=== PATIENT | male | born 1995 | race Caucasian/White ===

== ENCOUNTER 2016-11-04 06:06 | Day surgery (SDC) | payer OTHER ==
[2016-11-04] VITALS (7 sets, daily range): BP systolic 113–133; BP diastolic 73–86
[~2016-11-04] VITALS: Ht 165.1 cm; Wt 56.2 kg
--- NOTE | ~2016-11-04 | O ---
[facility] [place] [address] OPERATIVE REPORT Name: YAKELIN TEE Room #: DEP [facility] M..#: [id number] Admission: 11/04/16 Attend Phys: Sanchez Arango MD Discharge: 11/04/16 Date of : 89 Report #: [id number] THIS REPORT FOR: //name// CC: Gabby Smalls MD DATE OF SERVICE: 11/04/2016 PREOPERATIVE DIAGNOSIS: Status post acute ruptured appendicitis, now here for appendectomy. POSTOPERATIVE DIAGNOSIS: Status post acute ruptured appendicitis, now here for appendectomy. Appendix was retrocecal. PROCEDURES PERFORMED: Laparoscopic appendectomy. SURGEON: Sanchez Arango M.D. ANESTHESIA: General anesthesia. COMPLICATIONS: None. ESTIMATED BLOOD LOSS: 10 mL. DESCRIPTION OF PROCEDURE NOTE: The patient under general anesthesia, IV antibiotic Ancef and Flagyl was given. The abdomen was prepped and draped in sterile fashion. Timeout was performed. A 2 cm incision was made infraumbilically. Fascia was identified, grasped with hemostat. Fascia was then opened under visualization between the hemostat. A 0 Vicryl suture placed on the fascia for retraction. Veress needle was then placed through peritoneum. Abdominal cavity was insufflated with CO2. After creating pneumoperitoneum pressure of 15, a 12 mm trocar was placed under visualization through the fascial defect. The underlying tissue was not harmed during the port placement. A 5 mm trocar was placed about 3 inches above the umbilicus and then the second 5 mm trocar was placed about 2 inches below the umbilicus in the midline. The patient was placed with the right side up in the Trendelenburg position. The cecum is very floppy going down to the pelvis. The appendix incurred back up from the cecum in the retrocecal position lateral to the mesocolon. Some of the peritoneal reflection was freed and some adhesions were freed. The base of the appendix and the proximal appendix were normal in appearance. Dissection was carried out distally and then, the appendix was noted to be more swollen and adherent to the overlying cecum. Once I was able to separate these two and there is little mucusy material consistent where the rupture site was. This was about a couple of drops only. The tip of the appendix still goes about [address] to [address] [address] OPERATIVE REPORT Name: BEBOJAQUELINYAKELIN Room #: DEP [facility] M.R.#: [id number] Admission: 11/04/16 Attend Phys: Sanchez Arango MD Discharge: 11/04/16 Date of : 89 Report #: [id number] cm beyond the site. The tip of the appendix was isolated. The mesoappendix was divided. The appendix and also the mesoappendix were also divided at the base and isolating the appendix at the base. The 10 mm scope was switched to a 5 mm scope placed to the inferior trocar. Endo-JULIUS with the white staple was placed across the appendix and then, this was fired. The appendix was divided away from the cecum. identified. No bleeding was identified. There were some loose margot that were retrieved. Hemostasis obtained. The cecum was then allowed to go back into the pelvis. The trocars were then removed. CO2 was evacuated as much as possible. The fascia defect of the umbilicus was closed with [id number] 0 Vicryl times 2. Skin was irrigated, closed with 5-0 PDS. Steri-Strip and Band-Aids applied. The patient tolerated the procedure well and was taken to recovery room. By: [id number] Sanchez Arango MD /nt
--- NOTE | ~2016-11-04 | H ---
[facility] [place] [address] HISTORY AND PHYSICAL Name: YAKELIN TEE Room #: 150-7 [facility] M.R.#: [id number] Admission: 11/04/16 Attend Phys: Sanchez Arango MD Discharge: Date of : 89 Report #: [id number] THIS REPORT FOR: //name// CC: Gabby Arango PREOPERATIVE DIAGNOSIS: Recent acute appendicitis, here for appendectomy. HISTORY OF PRESENT ILLNESS: The patient is a 20-year-old who was seen originally the end of the 09/30/2016 with episode of abdominal pain. The patient's pain started about 4 days before presentation. He came to see me and a CAT scan was performed that showed he had evidence of appendicitis, but it looked like it could walled off posterior to the cecum. He was having pain on Thursday and then Thursday was localized to right lower quadrant. On Thursday, the pain got had moved back up again. No nausea, no vomiting. He was able to work through the pain episode. He did have some fevers and chills. He was admitted for treatment and patient initially thought this was gas build up or pulled muscle. The patient was put in the hospital on Thursday. At the same time, the patient developed shingles. Because of the process of being walled off I recommended antibiotic treatment. He was in the hospital for about 48 hours, 72 hours, treated with IV antibiotics, which he did do well with. His followup CT showed a diminishing inflammation there was a question whether he developed an abscess but that look like it was not going to happen. The patient was sent home on continued on oral antibiotics. He did improve following a course of antibiotics, he did follow couple of times in the office, continued to do well and the mass were inflammatory process in the right lower quadrant was improving on clinical exam. The patient is now brought in for laparoscopic appendectomy. PAST MEDICAL HISTORY: No heart disease, no diabetes. No high blood pressure. No lung disease. No liver or kidney disease. No bleeding disorder. No history of blood clot. Recent shingles. MEDICATIONS: None. ALLERGIES: None. FAMILY HISTORY: Also unremarkable. SOCIAL HISTORY: The patient works in the [employer]. Does not smoke or drink. REVIEW OF SYSTEMS: Unremarkable. PHYSICAL EXAMINATION: GENERAL: The patient is a well-nourished young male in no acute distress. HEENT: Pupils react to light. Extraocular muscles are intact. NECK: Soft and supple, no masses. [address] [address] HISTORY AND PHYSICAL Name: YAKELIN TEE Room #: 150-7 [facility] M.R.#: [id number] Admission: 11/04/16 Attend Phys: Sanchez Arango MD Discharge: Date of : 89 Report #: [id number] LUNGS: Clear to auscultation. HEART: Regular rate and rhythm. No murmur or gallop. ABDOMEN: Soft, nondistended and nontender. There is no inflammatory mass palpable. Bowel sounds normal. EXTREMITIES: No cyanosis, clubbing or edema. IMPRESSION: The patient is a 20-year-old who presented with appendicitis, the appendix walled off and inflammatory process is walled off. He may suspect he may have rupture by the time he presented. But improved with antibiotic treatment. He is now here for appendectomy. The initial episode started the weekend prior to the 09/30/2016. He is now about six weeks out ready to have his appendix removed. The patient understands laparoscopic approach. Risks of bleeding, infection, injury to surrounding tissue. The patient wants to proceed. By: [id number] Sanchez Arango MD /nt
--- NOTE | ~2016-11-04 | S ---
[facility] [place] [address] SURGICAL PATH RPT PROCEDURE Name: AUGUSTUS SEBASTIAN Room #: DEP [facility] M.R.#: [id number] Admission: 11/04/16 Date of : 89 Discharge: 11/04/16 Report #: [id number] Path Case #: [id number] PATHOLOGY REPORT COLLECTION DATE: 11/04/2016 RECEIVED DATE: 11/04/2016 SUBMITTING PHYS: Dr. Sanchez Arango OTHER PHYS: INGRID Vasquez SPECIMEN(S) RECEIVED: A.Appendix * * * * * * * * * * * * FINAL DIAGNOSIS: "Appendix," appendectomy: - Appendix with focal mucosal acute inflammation, exuberant lymphoid hyperplasia, focal foreign body type granulomatous response and dense serosal fibrous adhesions. (see comment) COMMENT: The findings likely represent either early or resolving acute appendicitis. Clinical and radiographic correlation is recommended. (CLW:; d/t: 11/05/16) PATHOLOGIST: Becky Cormier M.D. REPORT ELECTRONICALLY SIGNED BY: Becky Cormier M.D. DATE/TIME: 11/05/2016 15:03 * * * * * * * * * * * * GROSS PATHOLOGY: Received in formalin labeled "Augustus Sebastian and appendix," is an appendix measuring 5.8 cm in length and 0.8 cm in diameter with a scant amount of attached mesoappendix. The serosal surface is pink-bingham, diffusely hemorrhagic, and displays adhesions. Sectioning reveals a 0.3 cm in diameter lumen. The mucosa is pink-bingham and granular. The wall is uniform and measures 0.2 cm in thickness. Clinical Leader sections are submitted as follows: A1 bisected distal tip and proximal resection margin A2-A3 remainder of appendix (TTL; 11/04/2016) CLINICAL HISTORY: Appendicitis INITIAL CPT CODE(S): [facility] [place] [address] SURGICAL PATH RPT PROCEDURE Name: AUGUSTUS SEBASTIAN [facility]#: [id number] Admission: 11/04/16 Date of : 89 Discharge: 11/04/16 Report #: [id number] Path Case #: [id number] Professional services performed by [facility] at [address], [place] [address] Technical services performed by [facility] at [address] [place] [address], [place] [address]. [facility] [address] [place] [address] PHONE: [phone] DIRECTOR: Gavin Garcia M.D. * * * END OF REPORT * * *
[~2016-11-04 06:06] MED LIST: AUGMENTIN 875875 MG PO; FLAGYL500 MG PO; VALTREX 500 MG500 MG PO
[2016-11-04] MEDS ORDERED: NORCO 5-325 TA1 EACH PO (14:10)
== END 2016-11-04 22:10 | disposition home or self-care (01) ==
LOC: OR 06:06 → TBA 06:06 → OR 13:42 → 4N 16:29 → OR 22:10
DX: K35.89 Other acute appendicitis (principal); R59.0 Localized enlarged lymph nodes
CPT/HCPCS: 50010; 50101; 50411; 50555; 50558; 51975; 53307; 53310; 53312; 53335; 54022; 56525; 56526; 62110; 62900; 70005